=== PATIENT | female | born 1995 | race American Indian/Alaskan Native ===

== ENCOUNTER 2017-08-04 15:49 | Emergency (ER) | payer OTHER ==
[2017-08-04 15:49] VITALS: BMI 41.1
[2017-08-04 15:58] VITALS: BP 115/80; PULSE 80; RESP 18; TEMP 97.7; O2SAT 100
--- NOTE | 2017-08-04 16:41 | C.PDOC ---
History Of Present Illness 22 y/o female presents to emergency department with complaint of lower abdominal pain and vaginal spotting. Pt reports LMP was 07/09, with +home test, . 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 Patient reports on and off spotting for 1 week. Denies fever, chills, chest pain, palpitations, cough, shortness of breath, nausea, vomiting, dysuria, hematuria. Time Seen by Provider: 08/04/17 16:27 Chief Complaint (Nursing): Female Genitourinary History Per: Patient History/Exam Limitations: no limitations Onset/Duration Of Symptoms: Days, Intermittent Episodes Current Symptoms Are (Timing): Still Present Quality Of Discomfort: Cramping, "Pain" Associated Symptoms: denies: Fever, Nausea, Vomiting, Diarrhea Recent travel outside of the [place]: No Abnormal Vaginal Bleeding: Yes Last Menstral Period: 07/09/17 : 1 Para: 0 Past Medical History Reviewed: Historical Data, Nursing Documentation, Vital Signs Vital Signs: Last Vital Signs Temp 97.7 F 08/04/17 15:58 Pulse 80 08/04/17 15:58 Resp 18 08/04/17 15:58 BP 115/80 08/04/17 15:58 Pulse Ox 100 08/04/17 17:49 - Medical History PMH: Depression Surgical History: Cholecystectomy - [facility] Procedures INJECT/INFUSE NEC (04/02/15) RESECTION OF GALLBLADDER, PERCUTANEOUS ENDOSCOPIC APPROACH (09/13/16) Family History: States: Unknown Family Hx - Social History Hx Tobacco Use: No Hx Alcohol Use: No Hx Substance Use: No - Immunization History Hx Tetanus Toxoid Vaccination: No Hx Influenza Vaccination: No Hx Pneumococcal Vaccination: No Review Of Systems Except As Marked, All Systems Reviewed And Found Negative. Constitutional: Negative for: Fever, Chills Respiratory: Negative for: Cough Gastrointestinal: Positive for: Abdominal Pain. Negative for: Nausea, Vomiting Genitourinary: Positive for: Vaginal Bleeding (spotting, intermittent). Negative for: Dysuria, Hematuria Skin: Negative for: Rash Physical Exam - Physical Exam Appears: Non-toxic, No Acute Distress Skin: Normal Color, Warm, Dry Head: Atraumatic, Normacephalic Oral Mucosa: Moist Chest: Symmetrical Cardiovascular: Rhythm Regular Respiratory: No Rales, No Rhonchi, No Wheezing Gastrointestinal/Abdominal: Soft, Tenderness (suprapubic ), No Rebound Back: Normal Inspection, No CVA Tenderness Extremity: Normal ROM, Capillary Refill (< 2 sec. ) Neurological/Psych: Oriented x3, Normal Speech, Normal Cognition Gait: Steady ED Course And Treatment - Laboratory Results Urine POC: Negative O2 Sat by Pulse Oximetry: 100 Pulse Ox Interpretation: Normal Progress Note: UA ordered. urine Hcg neg. On re-evaluation abdomen soft mild suprapubic tenderness. 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 - Scribe Statement The provider has reviewed the documentation as recorded by the Scribalfredo Joel All medical record entries made by the Dale were at my direction and personally dictated by me. I have reviewed the chart and agree that the record accurately reflects my personal performance of the history, physical exam, medical decision making, and the department course for this patient. I have also personally directed, reviewed, and agree with the discharge instructions and disposition.
[2017-08-04 17:18] LABS: RBC URINE 1 /hpf (0-3); URINE BILIRUBIN NEGATIVE (NEGATIVE); URINE BLOOD NEGATIVE (NEGATIVE); URINE COLOR Yellow (YELLOW); URINE GLUCOSE (UA) NORMAL (Normal); URINE KETONE NEGATIVE (NEGATIVE); URINE LEUKOCYTE ESTERASE NEG Leu/uL (Negative); URINE PROTEIN NEGATIVE (NEGATIVE); WBC URINE 1 /hpf (0-5)
== END 2017-08-04 18:01 | disposition home or self-care (01) ==
LOC: C.ER 15:49
DX: N93.9 Abnormal uterine and vaginal bleeding, unspecified (principal)

== ENCOUNTER 2017-12-01 22:45 | Emergency (ER) | payer BC, OTHER ==
[2017-12-01 22:45] VITALS: BMI 41.1
[2017-12-01 23:12] VITALS: TEMP 98.3
[2017-12-01 23:26] LABS: SQUAMOUS EPITHIAL 1 /hpf (0-5); URINE BACTERIA RARE (<OCC); URINE BILIRUBIN NEGATIVE (NEGATIVE); URINE BLOOD NEGATIVE (NEGATIVE); URINE CLARITY Hazy (Clear); URINE COLOR Yellow (YELLOW); URINE GLUCOSE (UA) NORMAL (Normal); URINE LEUKOCYTE ESTERASE NEG Leu/uL (Negative); URINE PROTEIN NEGATIVE (NEGATIVE)
--- NOTE | 2017-12-02 00:48 | C.PDOC ---
History Of Present Illness 22 year old female presents to the ED for evaluation of lower abdominal pain and cramping which has been intermittent for 1 week. Patient reports symptoms feel like a "pressure-like" sensation. Patient states she has not had a bowel movement in one week. She notes she usually has one bowel movement per week. Patient was evaluated at [facility] two days ago. During her visit, she underwent bloodwork and was instructed to follow up with outpatient treatment. Patient denies fever, chills, nausea, vomiting, chest pain, uri, dysuria, urinary frequency, vaginal bleeding or discharge. Time Seen by Provider: 12/02/17 00:12 Chief Complaint (Nursing): Abdominal Pain History Per: Patient History/Exam Limitations: no limitations Onset/Duration Of Symptoms: Intermittent Episodes (1 week) Current Symptoms Are (Timing): Still Present Location Of Pain/Discomfort: Other (lower abdomen ) Quality Of Discomfort: Cramping, Pressure, "Pain" Associated Symptoms: Constipation. denies: Fever, Chills, Nausea, Vomiting Last Bowel Movement: Other (1 week ago) Additional History Per: Patient Abnormal Vaginal Bleeding: No Past Medical History Reviewed: Historical Data, Nursing Documentation, Vital Signs Vital Signs: Last Vital Signs Temp 98.3 F 12/02/17 01:38 Pulse 80 12/02/17 01:38 Resp 20 12/02/17 01:38 BP 111/74 12/02/17 01:38 Pulse Ox 99 12/02/17 04:18 - Medical History PMH: Depression Denies: HIV, HTN, Chronic Kidney Disease, Seizures, Sexually Transmitted Disease Surgical History: Cholecystectomy - [facility] Procedures INJECT/INFUSE NEC (04/02/15) RESECTION OF GALLBLADDER, PERCUTANEOUS ENDOSCOPIC APPROACH (09/13/16) Family History: States: Unknown Family Hx - Social History Hx Tobacco Use: No Hx Alcohol Use: No Hx Substance Use: No - Immunization History Hx Tetanus Toxoid Vaccination: No Hx Influenza Vaccination: No Hx Pneumococcal Vaccination: No Review Of Systems Constitutional: Negative for: Fever, Chills Gastrointestinal: Positive for: Abdominal Pain (lower ), Constipation. Negative for: Nausea, Vomiting Physical Exam - Physical Exam Appears: Well, Non-toxic, No Acute Distress Skin: Normal Color, Warm, Dry Head: Atraumatic, Normacephalic Eye(s): bilateral: Normal Inspection, EOMI Nose: Normal Oral Mucosa: Moist Neck: Normal ROM, Supple Chest: Symmetrical, No Deformity, No Tenderness Cardiovascular: Rhythm Regular Respiratory: Normal Breath Sounds, No Rales, No Rhonchi, No Wheezing Gastrointestinal/Abdominal: Soft, Tenderness (lower abdomen ), No Guarding, No Rebound Back: No CVA Tenderness, No Vertebral Tenderness Extremity: Normal ROM, Capillary Refill (less than 2 seconds ) Neurological/Psych: Oriented x3, Normal Speech, Normal Cognition ED Course And Treatment O2 Sat by Pulse Oximetry: 99 (on RA) Pulse Ox Interpretation: Normal - Other Rad Obstructive Series X-Ray: Interpreted by Me, Viewed By Me Interpretation: +FOS Progress Note: Obstructive Series ordered. Results show +FOS. UA ordered and reviewed. Patient was given [employer] [place] and was able to have a large bowel movement. On reassessment, patient is resting comfortably, abdomen remains soft , nontender and patient is afebrile and tolerating PO intake. Patient states her pain has resolved and she feels comfortable going home and is stable for discharge. Disposition - Disposition Disposition: HOME/ ROUTINE Disposition Time: 01:23 Condition: STABLE Additional Instructions: Increased your water and fiber intake. Follow up with your PMD in 1-2 days. Prescriptions: Polyethylene Glycol 3350 [Miralax] 17 gm PO DAILY #85 gm Instructions: Constipation, Adult (DC) Forms: [facility] [employer] (Albanian), Work Excuse - Clinical Impression Clinical Impression: Constipation - PA / FOLLOW UP REP / Resident Statement MD/DO has reviewed & agrees with the documentation as recorded. - Scribe Statement The provider has reviewed the documentation as recorded by the Scribe (Jacqui Tyler) All medical record entries made by the Scribe were at my direction and personally dictated by me. I have reviewed the chart and agree that the record accurately reflects my personal performance of the history, physical exam, medical decision making, and the department course for this patient. I have also personally directed, reviewed, and agree with the discharge instructions and disposition.
[2017-12-02 01:39] VITALS: BP 111/74; PULSE 80; RESP 20
[2017-12-02 04:01] VITALS: O2SAT 99
--- NOTE | 2017-12-02 08:36 | RAD ---
PROCEDURE: Radiographs of the chest and abdomen (obstructive series) HISTORY: pain COMPARISON: No prior. TECHNIQUE: AP radiograph of the chest, with upright and supine radiographs of the abdomen. FINDINGS: CHEST: Lungs: Clear. Cardiovascular: Normal size heart. No pulmonary vascular congestion. Pleura: No pleural fluid. No pneumothorax. Other findings: None. ABDOMEN AND PELVIS: Bowel: Stool retention.. No evidence of mechanical obstruction. Free air: None. Bones: Unremarkable. Other findings: Right upper quadrant post cholecystectomy clips suggested. IMPRESSION: No pulmonary infiltrate. No evidence of mechanical bowel obstruction. Stool retention.
== END 2017-12-02 01:41 | disposition home or self-care (01) ==
LOC: C.ER 22:45
DX: K59.00 Constipation, unspecified (principal)